=== PATIENT | male | born 1975 | race Caucasian/White ===

== ENCOUNTER → 2016-11-19 | Outpatient (CLI) | payer BC ==
[~2016-11-19] MED LIST: NS 100 ML IV 100 ML IV ONE
--- NOTE | 2016-11-19 15:41 | CT ---
CT abdomen and pelvis with contrast Indication: Left lower quadrant pain. Comparison: None Technique: CT images of the abdomen and pelvis were obtained after IV and oral contrast administrati on. Automatic exposure control was utilized. Findings: The lung bases are clear. No aggressive osseous lesions. The liver, gallbladder, spleen, stomach, duodenum, pancreas, adrenals, and kidneys demonstrate no si gnificant abnormality. There is a small simple appearing left lower pole renal cyst. No significant bowel thickening or dilatation of the lower GI tract identified. Contrast is present to the level of the sigmoid. The appendix appears normal. The urinary bladder, prostate, and rectum are unremarkabl e. No free fluid or adenopathy identified. There is a small fat containing left inguinal hernia. Impression: No acute process within the abdomen or pelvis. Small fat containing left inguinal hernia and other findings as above. Reported By:
== END ==
LOC: RAD 12:51
PROVIDERS: ATTEND Nurse Practitioner Family
DX: R10.32 Left lower quadrant pain (principal); R10.12 Left upper quadrant pain; R19.04 Left lower quadrant abdominal swelling, mass and lump
CPT/HCPCS: 74177; A4222

== ENCOUNTER 2017-07-18 07:12 | Inpatient (IN) | payer BC ==
[2017-07-18 07:19] VITALS: BMI 31.1
--- NOTE | 2017-07-18 07:54 | RAD ---
HISTORY: Shortness of breath Study: Two-view chest Comparison: No priors Findings: Trachea is midline. Heart size is normal. Linear foci of subsegmental atelectasis present in both omaira g bases. No dense consolidation, pleural fluid or pneumothorax is seen osseous structures are intact. IMPRESSION: Linear foci of subsegmental atelectasis present in both lung bases. Reported By:
[2017-07-18] MEDS ORDERED: DUONEB 0.5 MG/3 MG NEB ONE (07:58)
--- NOTE | 2017-07-18 08:04 | DR.GENAD ---
HPI - PCP Primary Care Physician: JERRY - Complaint/Symptoms Chief Complaint Doctors Comments: He's been having SOB + cough since sometimes in May. About 3 weeks ago he had an outpt. CXR that showed pneumonia. He was placed on Levaquin maybe 2 weeks ago and he finished this on 07/12/17. It took some time to get a pulmonology appt. for him but that is to happen 2 days from now. Last night he got more symptomatic. He's had fever and chills sometimes. The cough is productive sometimes and sometimes not. Chief Complaint:: "I HAVE BEEN SICK AND TAKING LEVAQUIN BUT I'M NOT FEELING BETTER." Self Treatment fo Chief Complaint: LEVAQUIN, BREATHING TX, STERIODS - Nurses notes reviewed Nurses Notes Review: Yes - Source History Provided: Patient - Mode of Arrival Mode of Arrival: Ambulatory - Timing Onset of Chief Complaint: 07/15/17 - Severity Severity: Moderate <LAUREN BEACH - Last Filed: 07/18/17 09:09> PMH - PMH Past Medical History: No Past Surgical History: No - Family History History of Family Medical Conditions: Yes Family Medical History: Cancer, Hypertension - Social History Does patient currently use any type of tobacco product: No Have you used tobacco products in the last 12 months: No Type of Tobacco Use: None Does any household member use tobacco: No Alcohol Use: None Do you use any recreational Drugs:: No Lives With: Spouse Lives Where: Home - infectious screening In the last 2 months have you had wt loss of >10#?: NO Have you had fever, night sweats or hemotysis?: No Have you traveled outside the country in the last 6 months?: No Isolation: Standard <LAUREN BEACH - Last Filed: 07/18/17 09:09> ROS - Review of Systems Constitutional: No Symptoms Reported Eyes: No Symptoms Reported ENTM: No Symptoms Reported Respiratoy: Productive Cough, Non-Productive Cough, Short of Breath Cardiovascular: No Symptoms Reported Gastrointestinal/Abdominal: No Symptoms Reported Genitourinary: No Symptoms Reported Neurological: No Symptoms Reported Musculoskeletal: No Symptoms Reported Integumentary: No Symptoms Reported Hematologic/Lymphatic: No Symptoms Reported Endocrine: No Symptoms Reported Psychiatric: No Symptoms Reported All Other Systems: Reviewed and Negative <LAUREN BEACH - Last Filed: 07/18/17 09:09> PE - General Limitations: No Limitations General Appearance: Alert, In No Apparent Distress - Head Head Exam: Normal Inspection - Eyes Eye exam: Normal Appearance - ENT ENT Exam: Normal Exam - Neck Neck Exam: Normal Inspection - Chest Chest Inspection: Normal Inspection, Symmetric Chest Wall Rise - Respiratory Respiratory Exam: negative: Normal Lung Sounds Bilat, Accessory Muscle Use, Chest Wall Tenderness, Prolonged Expiratory Phase, Respiratory Distress, Stridor Respiratory Exam: Bilateral Rhonchi (at bases), Bilateral Decreased Breath Sounds (at bases) - Cardiovascular Cardiovascular Exam: Regular Rate, Normal Rhythm, +S1, +S2 - Abdominal Exam Abdominal Exam: Normal Inspection, Normal Bowel Sounds, Soft - Extremities Extremities Exam: Normal Inspection - Back Back Exam: Normal Inspection - Neurologic Neurological Exam: Alert, Oriented X3, CN II-XII Intact - Psychiatric Psychiatric Exam: Normal Affect, Normal Mood - Skin Skin Exam: Warm, Dry, Intact, Normal Color <LAUREN BEACH - Last Filed: 07/18/17 09:09> - Vital Signs Vitals: Temperature 98.6 F Pulse Rate [Brachial] 108 Pulse Rate 84 Respiratory Rate 20 Blood Pressure [Right Arm] 132/71 Blood Pressure 153/78 O2 Sat by Pulse Oximetry 93 MDM - Differential Diagnosis Differential Diagnosis: CAP; Bronchitis; <LAUREN BEACH - Last Filed: 07/18/17 09:09> - Differential Diagnosis Differential Diagnosis: CAP; Bronchitis; hyoxia <LAINE JACK - Last Filed: 07/18/17 09:53> Course - Treatment Treatment: LEVAQUIN IVPB IN ED. - Consultation Consultation Comments: DISCUSS PATIENT WITH DR. HARRIS. HE WILL ADMIT PATIENT. - Education/Counseling Education/Counseling: Patient, Education Educated On: Diagnosis <LAINE JACK - Last Filed: 07/18/17 09:53> ROR - Labs Reviewed Result Diagrams: 07/18/17 07:46 07/18/17 07:46 - XRAY XRAY Interpreted by: Radiologist (bibasilar subsegmental atelectasis) <LAUREN BEACH - Last Filed: 07/18/17 09:09> - Labs Reviewed Laboratory Results Reviewed?: Yes Result Diagrams: 07/18/17 07:46 07/18/17 07:46 - XRAY XRAY Interpreted by: Radiologist XRAY Findings: REPORT NOTED <LAINE JACK - Last Filed: 07/18/17 09:53> - Labs Reviewed Laboratory: WBC 18.2 X10^3/uL (3.6-10.0) H 07/18/17 07:46 RBC 5.16 X10^6/uL (4.7-6.0) 07/18/17 07:46 Hgb 17.5 g/dL (13.5-18.0) 07/18/17 07:46 Hct 50.1 % (42.0-54.0) 07/18/17 07:46 MCV 97.2 fL (80.0-100.0) 07/18/17 07:46 MCH 34.0 pg (27.0-34.0) 07/18/17 07:46 MCHC 34.9 g/dL (33.0-35.0) 07/18/17 07:46 RDW 13.3 % (11.6-16.5) 07/18/17 07:46 Plt Count 229 X10^3/uL (150.0-450.0) 07/18/17 07:46 MPV 8.1 fL (7.4-11.0) 07/18/17 07:46 Neut % 87.6 % (42.0-75.0) H 07/18/17 07:46 Lymph % 7.3 % (21.0-51.0) L 07/18/17 07:46 [place] % 3.5 % (0.0-13.0) 07/18/17 07:46 Eos % 1.2 % (0.9-2.9) 07/18/17 07:46 Baso % 0.4 % (0.2-1.0) 07/18/17 07:46 Neut # 15.9 x10^3/uL (2.2-4.8) H 07/18/17 07:46 Lymph # 1.3 X10^3/uL (1.3-2.9) 07/18/17 07:46 [place] # 0.6 x10^3/uL (0.3-0.8) 07/18/17 07:46 Eos # 0.2 x10^3/uL (0.0-0.2) 07/18/17 07:46 Baso # 0.1 X10^3/uL (0.0-0.1) 07/18/17 07:46 Absolute Nucleated RBC 0.1 /100WBC 07/18/17 07:46 D-Dimer 140 ng/mL (0-400) 07/18/17 07:46 Sample Site Left radial 07/18/17 08:00 ABG pH 7.460 (7.35-7.45) H 07/18/17 08:00 ABG pCO2 37.0 mmHg (35.0-45.0) 07/18/17 08:00 ABG pO2 58.0 mmHg (80.0-100.0) L 07/18/17 08:00 ABG HCO3 26.3 mmol/L (22-26) H 07/18/17 08:00 ABG O2 Saturation 91.0 % (90-100) 07/18/17 08:00 ABG Base Excess 2.5 mmol/L (-2.0-2.0) H 07/18/17 08:00 Dain Test Pos 07/18/17 08:00 A-a Gradient 95.0 mmHg 07/18/17 08:00 FiO2 28.000 07/18/17 08:00 Blood Gas Comments Kia well gb 07/18/17 08:00 Sodium 139 mmol/L (136-145) 07/18/17 07:46 Corrected Sodium TNP 07/18/17 07:46 Potassium 3.7 mmol/L (3.5-5.1) 07/18/17 07:46 Chloride 101 mmol/L (98-107) 07/18/17 07:46 Carbon Dioxide 30.0 mmol/L (21-32) 07/18/17 07:46 BUN 14 mg/dL (7-18) 07/18/17 07:46 Creatinine 1.26 mg/dL (0.70-1.30) 07/18/17 07:46 Est GFR (MDRD) Af Amer > 60 (>60) 07/18/17 07:46 Est GFR (MDRD) Non-Af > 60 (>60) 07/18/17 07:46 Glucose 93 mg/dL (65-99) 07/18/17 07:46 Calcium 8.9 mg/dL (8.5-10.1) 07/18/17 07:46 Corrected Calcium TNP 07/18/17 07:46 Total Bilirubin 0.70 mg/dL (0.2-1.0) 07/18/17 07:46 AST 14 Units/L (15-37) L 07/18/17 07:46 ALT 37 Units/L (12-78) 07/18/17 07:46 Alkaline Phosphatase 63 Units/L (46-116) 07/18/17 07:46 Total Protein 8.2 g/dL (6.4-8.2) 07/18/17 07:46 Albumin 4.0 g/dL (3.4-5.0) 07/18/17 07:46 Globulin 4.2 g/dL (2.5-4.5) 07/18/17 07:46 Albumin/Globulin Ratio 1.0 Ratio (1.1-2.1) L 07/18/17 07:46 <LAUREN BEACH - Last Filed: 07/18/17 09:09> <LAINE JACK - Last Filed: 07/18/17 09:53> - Diagnosis Discharge Problem: Hypoxia Pneumonia Qualifiers: Pneumonia type: due to unspecified organism Laterality: bilateral Lung location : lower lobe of lung Qualified Code(s): J18.1 - Lobar pneumonia, unspecified organism - Discharge Plan Disposition: ADMITTED INPATIENT Condition: Stable - Follow ups/Referrals Follow ups/Referrals: YUN CALVILLO [Primary Care Provider] - 3 days - Instructions
[2017-07-18 08:11] LABS: BASOPHILS # (AUTO) 0.1 X10^3/uL (0.0-0.1); BASOPHILS % (AUTO) 0.4 % (0.2-1.0); EOSINOPHILS # (AUTO) 0.2 x10^3/uL (0.0-0.2); EOSINOPHILS % (AUTO) 1.2 % (0.9-2.9); HEMATOCRIT 50.1 % (42.0-54.0); HEMOGLOBIN 17.5 g/dL (13.5-18.0); LYMPHOCYTES # (AUTO) 1.3 X10^3/uL (1.3-2.9); LYMPHOCYTES % (AUTO) 7.3 % (21.0-51.0); MEAN CORPUSCULAR HGB CONC 34.9 g/dL (33.0-35.0); MEAN CORPUSCULAR VOLUME 97.2 fL (80.0-100.0); MEAN PLATELET VOLUME 8.1 fL (7.4-11.0); MONOCYTES # (AUTO) 0.6 x10^3/uL (0.3-0.8); MONOCYTES % (AUTO) 3.5 % (0.0-13.0); NEUTROPHILS # (AUTO) 15.9 x10^3/uL (2.2-4.8); NEUTROPHILS % (AUTO) 87.6 % (42.0-75.0); PLATELET COUNT 229 X10^3/uL (150.0-450.0); RED BLOOD COUNT 5.16 X10^6/uL (4.7-6.0); RED CELL DISTRIBUTION WIDTH 13.3 % (11.6-16.5); WHITE BLOOD COUNT 18.2 X10^3/uL (3.6-10.0)
[2017-07-18 08:21] LABS: ALANINE AMINOTRANSFERASE 37 Units/L (12-78); ALKALINE PHOSPHATASE 63 Units/L (46-116); ASPARTATE AMINO TRANSFERASE 14 Units/L (15-37); BLOOD UREA NITROGEN 14 mg/dL (7-18); CALCIUM 8.9 mg/dL (8.5-10.1); CHLORIDE 101 mmol/L (98-107); CREATININE 1.26 mg/dL (0.70-1.30); SODIUM 139 mmol/L (136-145); TOTAL PROTEIN 8.2 g/dL (6.4-8.2); eGFR BLACK RACES > 60 (>60); eGFR NON BLACK RACES > 60 (>60)
[2017-07-18 08:23] LABS: ABG BASE EXCESS 2.5 mmol/L (-2.0-2.0); ABG HCO3 26.3 mmol/L (22-26)
[2017-07-18 08:24] LABS: ABG ALLEN TEST POS
[2017-07-18] MEDS ORDERED: LEVAQUIN PREMIX IV 750 MG 750 MG/150 ML BAG IV ONE (09:04)
[2017-07-18] MEDS ORDERED: SALINE 3% 15 ML NEB TX ONE (09:17)
[2017-07-18] MEDS ORDERED: NS 1/2 1000 ML IV 1,000 ML IV ONE (09:49)
[2017-07-18] MEDS ORDERED: ZITHROMAX INJ 500 MG VIAL IV ONE (09:50)
[2017-07-18] MEDS ORDERED: NS 250 ML IV 250 ML IV ONE (09:51)
[2017-07-18] MEDS: ZITHROMAX INJ 500 MG VIAL 500 MG in NS 250 ML IV 250 ML IV SCH (09:59)
[2017-07-18] MEDS: NS 1/2 1000 ML IV 1,000 ML IV SCH (09:59)
[2017-07-18] MEDS: DUONEB 0.5 MG/3 MG NEB SCH ×4 (10:41→20:20)
[2017-07-18] MEDS: NORVASC TAB 5 MG PO SCH (10:56)
[2017-07-18] MEDS: VIBRAMYCIN 100 MG in NS 100 ML IV + SPIKE MINIBAG* 100 ML IV SCH ×2 (12:05→20:21)
[2017-07-18] MEDS: ROBITUSSIN DM PO SCH ×3 (12:05→20:22)
[2017-07-18] MEDS: TYLENOL 325 MG TAB PO PRN ×2 (15:00→21:13)
[2017-07-19] MEDS: DUONEB 0.5 MG/3 MG NEB SCH ×6 (00:58→20:38)
[2017-07-19] MEDS: NS 1/2 1000 ML IV 1,000 ML IV SCH ×3 (01:07→15:27)
[2017-07-19] MEDS ORDERED: NS 1/2 1000 ML IV 1,000 ML IV ONE ×2 (01:45→14:35)
[2017-07-19 05:39] LABS: BASOPHILS # (AUTO) 0.1 X10^3/uL (0.0-0.1); BASOPHILS % (AUTO) 0.7 % (0.2-1.0); EOSINOPHILS # (AUTO) 0.2 x10^3/uL (0.0-0.2); EOSINOPHILS % (AUTO) 1.6 % (0.9-2.9); HEMATOCRIT 43.3 % (42.0-54.0); LYMPHOCYTES # (AUTO) 1.7 X10^3/uL (1.3-2.9); MEAN CORPUSCULAR HEMOGLOBIN 33.6 pg (27.0-34.0); MEAN CORPUSCULAR HGB CONC 34.7 g/dL (33.0-35.0); MEAN PLATELET VOLUME 7.8 fL (7.4-11.0); MONOCYTES # (AUTO) 0.4 x10^3/uL (0.3-0.8); MONOCYTES % (AUTO) 3.6 % (0.0-13.0); NEUTROPHILS % (AUTO) 79.1 % (42.0-75.0); PLATELET COUNT 168 X10^3/uL (150.0-450.0); RED BLOOD COUNT 4.46 X10^6/uL (4.7-6.0); RED CELL DISTRIBUTION WIDTH 13.4 % (11.6-16.5); WHITE BLOOD COUNT 11.4 X10^3/uL (3.6-10.0)
[2017-07-19 06:02] LABS: ALANINE AMINOTRANSFERASE 32 Units/L (12-78); ALKALINE PHOSPHATASE 46 Units/L (46-116); ASPARTATE AMINO TRANSFERASE 16 Units/L (15-37); BLOOD UREA NITROGEN 10 mg/dL (7-18); CALCIUM 8.1 mg/dL (8.5-10.1); CARBON DIOXIDE 28.3 mmol/L (21-32); CHLORIDE 105 mmol/L (98-107); COR CA(FOR HYPOALB) 8.9 mg/dL (8.5-10.1); CREATININE 1.14 mg/dL (0.70-1.30); SODIUM 141 mmol/L (136-145); TOTAL PROTEIN 6.5 g/dL (6.4-8.2); eGFR BLACK RACES > 60 (>60); eGFR NON BLACK RACES > 60 (>60)
[2017-07-19] MEDS: NORVASC TAB 5 MG PO SCH (08:11)
[2017-07-19] MEDS: ZITHROMAX INJ 500 MG VIAL 500 MG in NS 250 ML IV 250 ML IV SCH (08:13)
[2017-07-19] MEDS: ROBITUSSIN DM PO SCH ×4 (08:13→20:18)
[2017-07-19] MEDS: VIBRAMYCIN 100 MG in NS 100 ML IV + SPIKE MINIBAG* 100 ML IV SCH ×2 (08:13→20:16)
[2017-07-19] MEDS ORDERED: SALINE 3% 15 ML NEB TX NEB ONE ×2 (13:15→15:10)
[2017-07-19] MEDS ORDERED: SALINE 3% 15 ML NEB TX ONE (14:59)
--- NOTE | 2017-07-19 15:22 | RAD ---
STUDY: CHEST, ONE VIEW History: Follow-up pneumonia. Comparison: July 18, 2017. Findings: The trachea is midline. There is linear atelectasis in both lung bases. The lungs are clear of consol idation, significant infiltrate, effusion, or pneumothorax. The cardiac silhouette, mediastinum and o sseous structures are unremarkable. IMPRESSION: 1. Noted no significant change in linear atelectasis in both lung bases. Reported By:
[2017-07-19] MEDS: MUCOMYST 20% 200 MG/ML NEB SCH ×2 (16:36→20:38)
[2017-07-19] MEDS: SOLU-Medrol 40 MG VIAL IVP SCH (20:17)
[2017-07-19] MEDS: PROTONIX INJ 40 MG VIAL IVP SCH (20:17)
[2017-07-19] MEDS: PULMICORT NEB TX 0.5 MG NEB SCH (20:38)
[2017-07-19 20:54] LABS: CKMB % 1.6 % (<4); CREATINE KINASE 61 Units/L (39-308); CREATINE KINASE MB < 1.0 ng/mL (0-4.0); TROPONIN I < 0.02 ng/mL (0-1.5)
[2017-07-20] MEDS: DUONEB 0.5 MG/3 MG NEB SCH ×6 (00:10→20:40)
[2017-07-20] MEDS: SOLU-Medrol 40 MG VIAL IVP SCH ×2 (03:40→13:17)
[2017-07-20] MEDS ORDERED: NS 1/2 1000 ML IV 1,000 ML IV ONE ×3 (03:42→22:28)
[2017-07-20] MEDS: NS 1/2 1000 ML IV 1,000 ML IV SCH ×5 (03:43→22:56)
[2017-07-20] MEDS ORDERED: NS 100 ML IV 100 ML IV ONE (06:06)
[2017-07-20 06:14] LABS: BASOPHILS % (AUTO) 0.2 % (0.2-1.0); EOSINOPHILS % (AUTO) 0.2 % (0.9-2.9); HEMATOCRIT 45.6 % (42.0-54.0); HEMOGLOBIN 15.9 g/dL (13.5-18.0); LYMPHOCYTES # (AUTO) 0.4 X10^3/uL (1.3-2.9); LYMPHOCYTES % (AUTO) 3.8 % (21.0-51.0); MEAN CORPUSCULAR HEMOGLOBIN 33.7 pg (27.0-34.0); MEAN CORPUSCULAR HGB CONC 34.9 g/dL (33.0-35.0); MEAN CORPUSCULAR VOLUME 96.4 fL (80.0-100.0); MEAN PLATELET VOLUME 8.1 fL (7.4-11.0); MONOCYTES # (AUTO) 0.1 x10^3/uL (0.3-0.8); NEUTROPHILS % (AUTO) 94.8 % (42.0-75.0); PLATELET COUNT 217 X10^3/uL (150.0-450.0); RED BLOOD COUNT 4.73 X10^6/uL (4.7-6.0); RED CELL DISTRIBUTION WIDTH 13.2 % (11.6-16.5); WHITE BLOOD COUNT 11.6 X10^3/uL (3.6-10.0)
[2017-07-20 06:38] LABS: PLATELET MORPHOLOGY COMMENT NORMAL (NORMAL)
[2017-07-20 06:43] LABS: ALANINE AMINOTRANSFERASE 39 Units/L (12-78); ALBUMIN 3.5 g/dL (3.4-5.0); ALKALINE PHOSPHATASE 55 Units/L (46-116); ASPARTATE AMINO TRANSFERASE 13 Units/L (15-37); BLOOD UREA NITROGEN 9 mg/dL (7-18); CALCIUM 8.8 mg/dL (8.5-10.1); CARBON DIOXIDE 23.2 mmol/L (21-32); CHLORIDE 104 mmol/L (98-107); COR NA(FOR HYPERGLY) 140 mmol/L (136-145); CREATININE 1.22 mg/dL (0.70-1.30); SODIUM 139 mmol/L (136-145); TOTAL PROTEIN 7.6 g/dL (6.4-8.2); eGFR BLACK RACES > 60 (>60); eGFR NON BLACK RACES > 60 (>60)
--- NOTE | 2017-07-20 06:52 | CT ---
HISTORY: Shortness of breath Study: CTA chest with contrast for pulmonary embolus Comparison: None Technique: Axial post-contrast images with coronal and sagittal reformats. Three-dimensional maximum intensity projection images were obtained and evaluated Dose reduction procedures were used with mA/k v adjusted for body size. Findings: There is no evidence for acute pulmonary thromboembolic disease in the main pulmonary artery or right and left main pulmonary artery is. Evaluation more distally is not possible due to suboptimal bolus timing. Repeat evaluation or ventilation-perfusion lung scan should be considered. Examination of the mediastinum demonstrated no evidence for mediastinal masses, enlarged mediastinal or enlarged hilar adenopathy. No pleural effusions are identified. No chest wall or axillary abnormality is identified. Those portions of the upper abdominal organs visualized were within normal limits. Examination of th e lung jerez demonstrated no evidence for nodules, or masses. Bibasilar subsegmental atelectatic rubi nges are present. There is an area of consolidation far posterior and inferior in both the right and left lower lobe most consistent with pneumonia. Follow-up until complete resolution is recommended. N o peribronchial thickening or significant bronchiectasis is identified. IMPRESSION: No visible pulmonary thromboembolic disease in the main or right and left main pulmonary artery is. T he remainder of the examination is nondiagnostic for the detection of acute pulmonary thromboembolic disease due to suboptimal bolus timing. Bilateral lower lobe pneumonia involving the far posterior and inferior lung bases bilaterally Reported By:
[2017-07-20 08:50] LABS: LACTIC ACID 4.1 mmol/L (0.4-2.0)
[2017-07-20 08:52] LABS: CKMB % 1.6 % (<4); CREATINE KINASE 63 Units/L (39-308); CREATINE KINASE MB < 1.0 ng/mL (0-4.0); TROPONIN I < 0.02 ng/mL (0-1.5)
[2017-07-20] MEDS: NORVASC TAB 5 MG PO SCH (09:09)
[2017-07-20] MEDS: ZITHROMAX INJ 500 MG VIAL 500 MG in NS 250 ML IV 250 ML IV SCH (09:10)
[2017-07-20] MEDS: VIBRAMYCIN 100 MG in NS 100 ML IV + SPIKE MINIBAG* 100 ML IV SCH ×2 (09:10→20:38)
[2017-07-20] MEDS: ROBITUSSIN DM PO SCH ×4 (09:10→20:44)
[2017-07-20] MEDS: PROTONIX INJ 40 MG VIAL IVP SCH (09:10)
[2017-07-20] MEDS: MUCOMYST 20% 200 MG/ML NEB SCH ×4 (09:18→20:40)
[2017-07-20] MEDS: PULMICORT NEB TX 0.5 MG NEB SCH ×2 (09:19→20:40)
--- NOTE | 2017-07-20 17:58 | PCM.PROG ---
Progress Note - Progress Note for Day of Date: 07/19/17 - Subjective Subjective: 42 WM ER ADMISSION WITH SOB, PT STATES HE WAS TRATED ON OUTPT BASIS FOR PNEUMONIA X 1 MONTH WITHOUT IMPROVEMENT. PT WAS SEEN IN [facility] BY DR HARRIS ONE DAY AGO. PT ON RESP THERAPY. PT CONTINUES TO CO SEVERE SOB, WORSE ON EXERTION. PT DENIES ANY CP. IV STEROIDS ADDED, MUCOMYST, PULMICORT, CTA CHEST Q AM. CARDIAC ENZYMES AND EKG. SUPPLMENTAL O2 - Past Medical Family Social History Past Med/Fam/Surg Hx: No changes since H&P Allergies: Allergies aspirin Allergy (Verified 07/18/17 07:19) Penicillins Allergy (Verified 07/18/17 07:19) - Review of Systems ROS: No change since H&P - Vital Signs and I&O's Vital Signs: Temperature 97.9 F Pulse Rate [Right Brachial] 115 Pulse Rate [Brachial] 90 Pulse Rate 107 Respiratory Rate 18 Blood Pressure [Left Arm] 139/64 Blood Pressure [Right Arm] 130/75 Blood Pressure 130/66 O2 Sat by Pulse Oximetry 93 Intake and Output: Intake & Output 07/18/17 07/19/17 07/20/17 07/21/17 11:59 11:59 11:59 11:59 Intake Total 2290 4265 800 Output Total 0 Balance 2290 4265 800 - Physical Exam Oriented: Normal Eyes: Normal Ear: Normal Nose: Normal Throat: Normal Respiratory: Diminished Cardiovascular: Normal. negative: Edema : Dysuria Auscultation: Bowel Sounds: Normal Palpation: Normal Tenderness: Normal Skin: Normal Musculoskeletal: Normal Affect: Anxious Speech Pattern: Clear, Appropriate - Laboratory and Diagnostics Result Diagrams: 07/20/17 05:40 07/20/17 05:40 Labs: 07/18/17 07:46 Blood Blood Culture - Preliminary 07/18/17 07:56 Blood Blood Culture - Preliminary 07/19/17 15:32 Sputum - Expectorated Sputum Sputum Culture - Preliminary 07/19/17 15:32 Sputum - Expectorated Sputum - Final Laboratory WBC 11.6 X10^3/uL (3.6-10.0) H 07/20/17 05:40 RBC 4.73 X10^6/uL (4.7-6.0) 07/20/17 05:40 Hgb 15.9 g/dL (13.5-18.0) 07/20/17 05:40 Hct 45.6 % (42.0-54.0) 07/20/17 05:40 MCV 96.4 fL (80.0-100.0) 07/20/17 05:40 MCH 33.7 pg (27.0-34.0) 07/20/17 05:40 MCHC 34.9 g/dL (33.0-35.0) 07/20/17 05:40 RDW 13.2 % (11.6-16.5) 07/20/17 05:40 Plt Count 217 X10^3/uL (150.0-450.0) 07/20/17 05:40 Plt Count Comment Adequate (ADEQUATE) 07/20/17 05:40 MPV 8.1 fL (7.4-11.0) 07/20/17 05:40 Neut % (Auto) 94.8 % (42.0-75.0) H 07/20/17 05:40 Lymph % (Auto) 3.8 % (21.0-51.0) L 07/20/17 05:40 [place] % (Auto) 1.0 % (0.0-13.0) 07/20/17 05:40 Eos % (Auto) 0.2 % (0.9-2.9) L 07/20/17 05:40 Baso % (Auto) 0.2 % (0.2-1.0) 07/20/17 05:40 Neut # (Auto) 11.0 x10^3/uL (2.2-4.8) H 07/20/17 05:40 Lymph # (Auto) 0.4 X10^3/uL (1.3-2.9) L 07/20/17 05:40 [place] # (Auto) 0.1 x10^3/uL (0.3-0.8) L 07/20/17 05:40 Eos # (Auto) 0.0 x10^3/uL (0.0-0.2) 07/20/17 05:40 Baso # (Auto) 0.0 X10^3/uL (0.0-0.1) 07/20/17 05:40 Absolute Nucleated RBC 0.0 /100WBC 07/20/17 05:40 Total Counted 100 07/20/17 05:40 Neutrophils % (Manual) 96 % (39-76) H 07/20/17 05:40 Lymphocytes % (Manual) 4 % (13-43) L 07/20/17 05:40 Plt Morphology Comment Normal (NORMAL) 07/20/17 05:40 RBC Morphology Normal (NORMAL) 07/20/17 05:40 D-Dimer 140 ng/mL (0-400) 07/18/17 07:46 Sample Site Left radial 07/18/17 08:00 ABG pH 7.460 (7.35-7.45) H 07/18/17 08:00 ABG pCO2 37.0 mmHg (35.0-45.0) 07/18/17 08:00 ABG pO2 58.0 mmHg (80.0-100.0) L 07/18/17 08:00 ABG HCO3 26.3 mmol/L (22-26) H 07/18/17 08:00 ABG O2 Saturation 91.0 % (90-100) 07/18/17 08:00 ABG Base Excess 2.5 mmol/L (-2.0-2.0) H 07/18/17 08:00 Dain Test Pos 07/18/17 08:00 A-a Gradient 95.0 mmHg 07/18/17 08:00 FiO2 28.000 07/18/17 08:00 Blood Gas Comments Kia well gb 07/18/17 08:00 Sodium 139 mmol/L (136-145) 07/20/17 05:40 Corrected Sodium 140 mmol/L (136-145) 07/20/17 05:40 Potassium 4.5 mmol/L (3.5-5.1) 07/20/17 05:40 Chloride 104 mmol/L (98-107) 07/20/17 05:40 Carbon Dioxide 23.2 mmol/L (21-32) 07/20/17 05:40 BUN 9 mg/dL (7-18) 07/20/17 05:40 Creatinine 1.22 mg/dL (0.70-1.30) 07/20/17 05:40 Est GFR (MDRD) Af Amer > 60 (>60) 07/20/17 05:40 Est GFR (MDRD) Non-Af > 60 (>60) 07/20/17 05:40 Glucose 157 mg/dL (65-99) H 07/20/17 05:40 Lactic Acid 4.1 mmol/L (0.4-2.0) H 07/20/17 08:10 Calcium 8.8 mg/dL (8.5-10.1) 07/20/17 05:40 Corrected Calcium TNP 07/20/17 05:40 Total Bilirubin 0.40 mg/dL (0.2-1.0) 07/20/17 05:40 AST 13 Units/L (15-37) L 07/20/17 05:40 ALT 39 Units/L (12-78) 07/20/17 05:40 Alkaline Phosphatase 55 Units/L (46-116) 07/20/17 05:40 Creatine Kinase 63 Units/L (39-308) 07/20/17 08:10 CK-MB (CK-2) < 1.0 ng/mL (0-4.0) 07/20/17 08:10 CK/CKMB % Calc 1.6 % (<4) 07/20/17 08:10 Troponin I < 0.02 ng/mL (0-1.5) 07/20/17 08:10 Total Protein 7.6 g/dL (6.4-8.2) 07/20/17 05:40 Albumin 3.5 g/dL (3.4-5.0) 07/20/17 05:40 Globulin 4.1 g/dL (2.5-4.5) 07/20/17 05:40 Albumin/Globulin Ratio 0.9 Ratio (1.1-2.1) L 07/20/17 05:40 - Plan (1) SOB (shortness of breath) Status: Acute Plan: CONTINUE IV ATBX, RESP THERAPY. PULMONARY TOILETING, PT. CTA CHEST Q AM , BP MONITORING. CARDIAC ENZYMES AND EKG. REPEAT AM LABS, LACTIC ACID (2) Hypertension Status: Acute (3) Pneumonia Status: Acute Qualifiers: Pneumonia type: due to unspecified organism Laterality: bilateral Lung location: lower lobe of lung Qualified Code(s): J18.1 - Lobar pneumonia, unspecified organism
--- NOTE | 2017-07-20 18:01 | PCM.PROG ---
Progress Note - Progress Note for Day of Date: 07/20/17 - Subjective Subjective: 42 WM ER ADMISSION WITH SOB, PT STATES HE WAS TRATED ON OUTPT BASIS FOR PNEUMONIA X 1 MONTH WITHOUT IMPROVEMENT. PT CONTINUES TO CO SOB THIS AM, MILD NON PRODUCTIVE COUGH. PT CTA REVEALED BILATERAL PNEUMONIA, DISCUSSED LAB AND RAD REPORTS, ADD SMART VEST, ENCOURAGE HYDRATION AND AMBULATION. REPEAT AM LABS AND CXR - Past Medical Family Social History Past Med/Fam/Surg Hx: No changes since H&P Allergies: Allergies aspirin Allergy (Verified 07/18/17 07:19) Penicillins Allergy (Verified 07/18/17 07:19) - Review of Systems ROS: No change since H&P - Vital Signs and I&O's Vital Signs: Temperature 97.9 F Pulse Rate [Right Brachial] 115 Pulse Rate [Brachial] 90 Pulse Rate 107 Respiratory Rate 18 Blood Pressure [Left Arm] 139/64 Blood Pressure [Right Arm] 130/75 Blood Pressure 130/66 O2 Sat by Pulse Oximetry 93 Intake and Output: Intake & Output 07/18/17 07/19/17 07/20/17 07/21/17 11:59 11:59 11:59 11:59 Intake Total 2290 4265 800 Output Total 0 Balance 2290 4265 800 - Physical Exam Oriented: Normal Eyes: Normal Ear: Normal Nose: Normal Throat: Normal Respiratory: Diminished Cardiovascular: Normal. negative: Edema : Dysuria Auscultation: Bowel Sounds: Normal Tenderness: Normal Skin: Normal Musculoskeletal: Normal Affect: Anxious Speech Pattern: Clear, Appropriate - Laboratory and Diagnostics Result Diagrams: 07/20/17 05:40 07/20/17 05:40 Labs: 07/18/17 07:46 Blood Blood Culture - Preliminary 07/18/17 07:56 Blood Blood Culture - Preliminary 07/19/17 15:32 Sputum - Expectorated Sputum Sputum Culture - Preliminary 07/19/17 15:32 Sputum - Expectorated Sputum - Final Laboratory WBC 11.6 X10^3/uL (3.6-10.0) H 07/20/17 05:40 RBC 4.73 X10^6/uL (4.7-6.0) 07/20/17 05:40 Hgb 15.9 g/dL (13.5-18.0) 07/20/17 05:40 Hct 45.6 % (42.0-54.0) 07/20/17 05:40 MCV 96.4 fL (80.0-100.0) 07/20/17 05:40 MCH 33.7 pg (27.0-34.0) 07/20/17 05:40 MCHC 34.9 g/dL (33.0-35.0) 07/20/17 05:40 RDW 13.2 % (11.6-16.5) 07/20/17 05:40 Plt Count 217 X10^3/uL (150.0-450.0) 07/20/17 05:40 Plt Count Comment Adequate (ADEQUATE) 07/20/17 05:40 MPV 8.1 fL (7.4-11.0) 07/20/17 05:40 Neut % (Auto) 94.8 % (42.0-75.0) H 07/20/17 05:40 Lymph % (Auto) 3.8 % (21.0-51.0) L 07/20/17 05:40 [place] % (Auto) 1.0 % (0.0-13.0) 07/20/17 05:40 Eos % (Auto) 0.2 % (0.9-2.9) L 07/20/17 05:40 Baso % (Auto) 0.2 % (0.2-1.0) 07/20/17 05:40 Neut # (Auto) 11.0 x10^3/uL (2.2-4.8) H 07/20/17 05:40 Lymph # (Auto) 0.4 X10^3/uL (1.3-2.9) L 07/20/17 05:40 [place] # (Auto) 0.1 x10^3/uL (0.3-0.8) L 07/20/17 05:40 Eos # (Auto) 0.0 x10^3/uL (0.0-0.2) 07/20/17 05:40 Baso # (Auto) 0.0 X10^3/uL (0.0-0.1) 07/20/17 05:40 Absolute Nucleated RBC 0.0 /100WBC 07/20/17 05:40 Total Counted 100 07/20/17 05:40 Neutrophils % (Manual) 96 % (39-76) H 07/20/17 05:40 Lymphocytes % (Manual) 4 % (13-43) L 07/20/17 05:40 Plt Morphology Comment Normal (NORMAL) 07/20/17 05:40 RBC Morphology Normal (NORMAL) 07/20/17 05:40 D-Dimer 140 ng/mL (0-400) 07/18/17 07:46 Sample Site Left radial 07/18/17 08:00 ABG pH 7.460 (7.35-7.45) H 07/18/17 08:00 ABG pCO2 37.0 mmHg (35.0-45.0) 07/18/17 08:00 ABG pO2 58.0 mmHg (80.0-100.0) L 07/18/17 08:00 ABG HCO3 26.3 mmol/L (22-26) H 07/18/17 08:00 ABG O2 Saturation 91.0 % (90-100) 07/18/17 08:00 ABG Base Excess 2.5 mmol/L (-2.0-2.0) H 07/18/17 08:00 Dain Test Pos 07/18/17 08:00 A-a Gradient 95.0 mmHg 07/18/17 08:00 FiO2 28.000 07/18/17 08:00 Blood Gas Comments Kia well gb 07/18/17 08:00 Sodium 139 mmol/L (136-145) 07/20/17 05:40 Corrected Sodium 140 mmol/L (136-145) 07/20/17 05:40 Potassium 4.5 mmol/L (3.5-5.1) 07/20/17 05:40 Chloride 104 mmol/L (98-107) 07/20/17 05:40 Carbon Dioxide 23.2 mmol/L (21-32) 07/20/17 05:40 BUN 9 mg/dL (7-18) 07/20/17 05:40 Creatinine 1.22 mg/dL (0.70-1.30) 07/20/17 05:40 Est GFR (MDRD) Af Amer > 60 (>60) 07/20/17 05:40 Est GFR (MDRD) Non-Af > 60 (>60) 07/20/17 05:40 Glucose 157 mg/dL (65-99) H 07/20/17 05:40 Lactic Acid 4.1 mmol/L (0.4-2.0) H 07/20/17 08:10 Calcium 8.8 mg/dL (8.5-10.1) 07/20/17 05:40 Corrected Calcium TNP 07/20/17 05:40 Total Bilirubin 0.40 mg/dL (0.2-1.0) 07/20/17 05:40 AST 13 Units/L (15-37) L 07/20/17 05:40 ALT 39 Units/L (12-78) 07/20/17 05:40 Alkaline Phosphatase 55 Units/L (46-116) 07/20/17 05:40 Creatine Kinase 63 Units/L (39-308) 07/20/17 08:10 CK-MB (CK-2) < 1.0 ng/mL (0-4.0) 07/20/17 08:10 CK/CKMB % Calc 1.6 % (<4) 07/20/17 08:10 Troponin I < 0.02 ng/mL (0-1.5) 07/20/17 08:10 Total Protein 7.6 g/dL (6.4-8.2) 07/20/17 05:40 Albumin 3.5 g/dL (3.4-5.0) 07/20/17 05:40 Globulin 4.1 g/dL (2.5-4.5) 07/20/17 05:40 Albumin/Globulin Ratio 0.9 Ratio (1.1-2.1) L 07/20/17 05:40 - Plan (1) SOB (shortness of breath) Status: Acute Plan: CONTINUE IV ATBX, RESP THERAPY. PULMONARY TOILETING, PT. CTA CHEST RESULTS REVIEWED WITH PT, BP MONITORING. CARDIAC ENZYMES AND EKG REVIEWED WITH PT AND FAMILY. REPEAT AM LABS, LACTIC ACID (2) Hypertension Status: Acute (3) Pneumonia Status: Acute Qualifiers: Pneumonia type: due to unspecified organism Laterality: bilateral Lung location: lower lobe of lung Qualified Code(s): J18.1 - Lobar pneumonia, unspecified organism Plan: ATBX, RESP CARE, CXR
[2017-07-20] MEDS: TUSSIONEX PENNKINETIC SUSP PO PRN ×2 (20:38→22:56)
[2017-07-21] MEDS: DUONEB 0.5 MG/3 MG NEB SCH ×6 (01:22→21:23)
[2017-07-21] MEDS ORDERED: NS 1/2 1000 ML IV 1,000 ML IV ONE ×3 (05:02→19:17)
[2017-07-21] MEDS: NS 1/2 1000 ML IV 1,000 ML IV SCH ×5 (05:38→20:30)
[2017-07-21 05:42] LABS: LACTIC ACID 2.2 mmol/L (0.4-2.0)
[2017-07-21 05:47] LABS: ALANINE AMINOTRANSFERASE 37 Units/L (12-78); ALBUMIN 2.9 g/dL (3.4-5.0); ALKALINE PHOSPHATASE 47 Units/L (46-116); ASPARTATE AMINO TRANSFERASE 14 Units/L (15-37); BLOOD UREA NITROGEN 11 mg/dL (7-18); CALCIUM 8.3 mg/dL (8.5-10.1); CARBON DIOXIDE 25.2 mmol/L (21-32); CHLORIDE 106 mmol/L (98-107); COR CA(FOR HYPOALB) 9.2 mg/dL (8.5-10.1); COR NA(FOR HYPERGLY) 142 mmol/L (136-145); CREATININE 1.02 mg/dL (0.70-1.30); SODIUM 141 mmol/L (136-145); TOTAL PROTEIN 6.2 g/dL (6.4-8.2); eGFR BLACK RACES > 60 (>60); eGFR NON BLACK RACES > 60 (>60)
[2017-07-21 05:51] LABS: BASOPHILS % (AUTO) 0.2 % (0.2-1.0); HEMATOCRIT 40.4 % (42.0-54.0); LYMPHOCYTES # (AUTO) 0.9 X10^3/uL (1.3-2.9); LYMPHOCYTES % (AUTO) 4.6 % (21.0-51.0); MEAN CORPUSCULAR HEMOGLOBIN 33.5 pg (27.0-34.0); MEAN CORPUSCULAR HGB CONC 34.6 g/dL (33.0-35.0); MEAN PLATELET VOLUME 8.4 fL (7.4-11.0); MONOCYTES # (AUTO) 0.7 x10^3/uL (0.3-0.8); MONOCYTES % (AUTO) 3.5 % (0.0-13.0); NEUTROPHILS # (AUTO) 17.6 x10^3/uL (2.2-4.8); NEUTROPHILS % (AUTO) 91.7 % (42.0-75.0); PLATELET COUNT 209 X10^3/uL (150.0-450.0); RED BLOOD COUNT 4.17 X10^6/uL (4.7-6.0); RED CELL DISTRIBUTION WIDTH 13.1 % (11.6-16.5); WHITE BLOOD COUNT 19.2 X10^3/uL (3.6-10.0)
[2017-07-21 06:38] LABS: BAND NEUTROPHILS % 4 % (0-10); PLATELET MORPHOLOGY COMMENT NORMAL (NORMAL)
[2017-07-21] MEDS: VIBRAMYCIN 100 MG in NS 100 ML IV + SPIKE MINIBAG* 100 ML IV SCH ×2 (08:42→20:30)
[2017-07-21] MEDS: PROTONIX INJ 40 MG VIAL IVP SCH (08:42)
[2017-07-21] MEDS: ROBITUSSIN DM PO SCH ×4 (08:42→20:30)
[2017-07-21] MEDS: NORVASC TAB 5 MG PO SCH (08:42)
[2017-07-21] MEDS: ZITHROMAX INJ 500 MG VIAL 500 MG in NS 250 ML IV 250 ML IV SCH (08:42)
[2017-07-21] MEDS: MUCOMYST 20% 200 MG/ML NEB SCH ×4 (09:03→21:23)
[2017-07-21] MEDS: PULMICORT NEB TX 0.5 MG NEB SCH ×2 (09:03→21:23)
--- NOTE | 2017-07-21 09:35 | RAD ---
Examination: Chest, PA and lateral views History: Follow-up pneumonia Comparison reference 07/19/2017 Findings: Continued normal heart size with mild symmetric pulmonary underinflation. There are persist ent areas of linear density in both lower lungs as previously noted. No consolidation, adenopathy or pleural fluid identified. Impression: Persistent bibasal areas of infiltrate/atelectasis, accentuated by low pulmonary volumes. Reported By:
[2017-07-21] MEDS ORDERED: SALINE 0.9% 3 ML NEB TX NEB ONE (10:23)
[2017-07-21] MEDS ORDERED: SALINE 3% 15 ML NEB TX NEB ONE (10:45)
[2017-07-21 14:19] LABS: MYCOPLASMA PNEUMONIAE IGM AB POSITIVE (NEGATIVE)
[2017-07-22] MEDS: DUONEB 0.5 MG/3 MG NEB SCH ×6 (01:24→21:23)
[2017-07-22] MEDS ORDERED: NS 1/2 1000 ML IV 1,000 ML IV ONE ×4 (01:36→22:16)
[2017-07-22] MEDS: NS 1/2 1000 ML IV 1,000 ML IV SCH ×3 (04:39→18:05)
[2017-07-22 05:39] LABS: BASOPHILS % (AUTO) 0.3 % (0.2-1.0); EOSINOPHILS # (AUTO) 0.1 x10^3/uL (0.0-0.2); EOSINOPHILS % (AUTO) 1.1 % (0.9-2.9); HEMATOCRIT 40.6 % (42.0-54.0); HEMOGLOBIN 14.3 g/dL (13.5-18.0); LYMPHOCYTES # (AUTO) 2.3 X10^3/uL (1.3-2.9); LYMPHOCYTES % (AUTO) 23.3 % (21.0-51.0); MEAN CORPUSCULAR HEMOGLOBIN 33.9 pg (27.0-34.0); MEAN CORPUSCULAR HGB CONC 35.1 g/dL (33.0-35.0); MEAN CORPUSCULAR VOLUME 96.7 fL (80.0-100.0); MONOCYTES # (AUTO) 0.7 x10^3/uL (0.3-0.8); MONOCYTES % (AUTO) 6.6 % (0.0-13.0); NEUTROPHILS # (AUTO) 6.8 x10^3/uL (2.2-4.8); NEUTROPHILS % (AUTO) 68.7 % (42.0-75.0); PLATELET COUNT 195 X10^3/uL (150.0-450.0); RED CELL DISTRIBUTION WIDTH 12.9 % (11.6-16.5); WHITE BLOOD COUNT 9.9 X10^3/uL (3.6-10.0)
[2017-07-22 05:57] LABS: ALANINE AMINOTRANSFERASE 62 Units/L (12-78); ALBUMIN 2.9 g/dL (3.4-5.0); ALKALINE PHOSPHATASE 43 Units/L (46-116); ASPARTATE AMINO TRANSFERASE 27 Units/L (15-37); BLOOD UREA NITROGEN 14 mg/dL (7-18); CALCIUM 8.1 mg/dL (8.5-10.1); CARBON DIOXIDE 26.9 mmol/L (21-32); CHLORIDE 105 mmol/L (98-107); CREATININE 1.06 mg/dL (0.70-1.30); SODIUM 141 mmol/L (136-145); TOTAL PROTEIN 6.3 g/dL (6.4-8.2); eGFR BLACK RACES > 60 (>60); eGFR NON BLACK RACES > 60 (>60)
[2017-07-22] MEDS: PROTONIX INJ 40 MG VIAL IVP SCH (08:13)
[2017-07-22] MEDS: NORVASC TAB 5 MG PO SCH (08:13)
[2017-07-22] MEDS: ROBITUSSIN DM PO SCH ×4 (08:13→21:10)
[2017-07-22] MEDS: VIBRAMYCIN 100 MG in NS 100 ML IV + SPIKE MINIBAG* 100 ML IV SCH ×2 (08:13→21:10)
[2017-07-22] MEDS: ZITHROMAX INJ 500 MG VIAL 500 MG in NS 250 ML IV 250 ML IV SCH (08:14)
[2017-07-22] MEDS: MUCOMYST 20% 200 MG/ML NEB SCH (09:51)
[2017-07-22] MEDS: PULMICORT NEB TX 0.5 MG NEB SCH ×2 (09:51→21:23)
[2017-07-22] MEDS: TUSSIONEX PENNKINETIC SUSP PO PRN (22:30)
[2017-07-23] MEDS: NS 1/2 1000 ML IV 1,000 ML IV SCH (03:19)
[2017-07-23] MEDS: DUONEB 0.5 MG/3 MG NEB SCH ×6 (05:01→21:12)
[2017-07-23 05:43] LABS: BASOPHILS % (AUTO) 0.4 % (0.2-1.0); EOSINOPHILS # (AUTO) 0.2 x10^3/uL (0.0-0.2); EOSINOPHILS % (AUTO) 2.8 % (0.9-2.9); HEMATOCRIT 43.2 % (42.0-54.0); HEMOGLOBIN 15.1 g/dL (13.5-18.0); LYMPHOCYTES # (AUTO) 1.9 X10^3/uL (1.3-2.9); LYMPHOCYTES % (AUTO) 22.4 % (21.0-51.0); MEAN CORPUSCULAR HGB CONC 34.9 g/dL (33.0-35.0); MEAN CORPUSCULAR VOLUME 97.4 fL (80.0-100.0); MEAN PLATELET VOLUME 7.4 fL (7.4-11.0); MONOCYTES # (AUTO) 0.7 x10^3/uL (0.3-0.8); MONOCYTES % (AUTO) 8.1 % (0.0-13.0); NEUTROPHILS # (AUTO) 5.7 x10^3/uL (2.2-4.8); NEUTROPHILS % (AUTO) 66.3 % (42.0-75.0); PLATELET COUNT 196 X10^3/uL (150.0-450.0); RED BLOOD COUNT 4.43 X10^6/uL (4.7-6.0); RED CELL DISTRIBUTION WIDTH 13.4 % (11.6-16.5); WHITE BLOOD COUNT 8.6 X10^3/uL (3.6-10.0)
[2017-07-23 05:49] LABS: LACTIC ACID 1.3 mmol/L (0.4-2.0)
[2017-07-23 05:56] LABS: ALANINE AMINOTRANSFERASE 70 Units/L (12-78); ALKALINE PHOSPHATASE 50 Units/L (46-116); ASPARTATE AMINO TRANSFERASE 25 Units/L (15-37); BLOOD UREA NITROGEN 13 mg/dL (7-18); CALCIUM 8.3 mg/dL (8.5-10.1); CARBON DIOXIDE 29.5 mmol/L (21-32); CHLORIDE 104 mmol/L (98-107); COR CA(FOR HYPOALB) 9.1 mg/dL (8.5-10.1); CREATININE 1.07 mg/dL (0.70-1.30); SODIUM 139 mmol/L (136-145); TOTAL PROTEIN 6.5 g/dL (6.4-8.2); eGFR BLACK RACES > 60 (>60); eGFR NON BLACK RACES > 60 (>60)
--- NOTE | 2017-07-23 06:45 | RAD ---
Examination: Chest, PA and lateral views History: Pneumonia Comparison 07/21/2017 Findings: Continued normal heart size with persistent areas of linear infiltrate/atelectasis in the l ower lobes. The upper lungs remain clear. No pneumothorax or pleural fluid. Impression: No change in appearance of the chest since 2 days earlier. Reported By:
[2017-07-23] MEDS ORDERED: NS 100 ML IV 100 ML IV ONE (07:38)
[2017-07-23] MEDS: VIBRAMYCIN 100 MG in NS 100 ML IV + SPIKE MINIBAG* 100 ML IV SCH ×2 (08:16→21:15)
[2017-07-23] MEDS: ROBITUSSIN DM PO SCH ×4 (08:16→21:15)
[2017-07-23] MEDS: SOLU-Medrol 40 MG VIAL IVP SCH ×3 (08:17→21:15)
[2017-07-23] MEDS: ZITHROMAX INJ 500 MG VIAL 500 MG in NS 250 ML IV 250 ML IV SCH (08:18)
[2017-07-23] MEDS: PROTONIX INJ 40 MG VIAL IVP SCH (08:18)
[2017-07-23] MEDS: NORVASC TAB 5 MG PO SCH (08:19)
[2017-07-23] MEDS: PULMICORT NEB TX 0.5 MG NEB SCH ×2 (09:05→21:13)
--- NOTE | 2017-07-23 09:30 | CT ---
HISTORY: Shortness of breath, pneumonia Study: CT chest with IV contrast Comparison: 07/20/2017 Technique: Multiple axial images of the chest were obtained from the thoracic inlet to the upper abdo men during the administration of IV contrast. Coronal and sagittal images are also reviewed. MIP shila nstructions were performed in axial plane. Dose reduction techniques utilized automatic exposure cont rol. Findings: Small central mediastinal and aortopulmonary window lymph nodes are present. No significant adenopath y is seen. There is no pericardial effusion observed. The thoracic aorta is normal in its contour w ithout evidence for aneurysmal dilatation. The central pulmonary arterial system does not demonstrat e central filling defects to suggest pulmonary emboli. Evaluation of the lung parenchyma reveals bilateral right middle lobe and bibasilar subsegmental atel ectasis or infiltrate. The opacities appear to have increased slightly in density compared to prior s tudies. No significant emphysema or bronchiectasis is seen. No pulmonary nodule or mass can be ident ified. The bony thorax is unremarkable in its appearance. The visualized portions of the upper abdo men are grossly unremarkable. IMPRESSION: No evidence of pulmonary embolus or thoracic aortic aneurysm. Interval increase in density in foci of atelectasis or infiltrate in the right middle and both lower lobe regions. No pleural or pericardial effusion is seen. Reported By:
[2017-07-23 11:44] LABS: ABG BASE EXCESS 1.5 mmol/L (-2.0-2.0); ABG HCO3 25.9 mmol/L (22-26)
[2017-07-23 11:45] LABS: ABG ALLEN TEST POS
[2017-07-23] MEDS: NS 1000 ML 1,000 ML IV SCH (12:27)
[2017-07-24] MEDS: DUONEB 0.5 MG/3 MG NEB SCH ×4 (00:39→12:43)
[2017-07-24 05:43] LABS: BASOPHILS % (AUTO) 0.2 % (0.2-1.0); HEMATOCRIT 43.3 % (42.0-54.0); LYMPHOCYTES # (AUTO) 0.6 X10^3/uL (1.3-2.9); LYMPHOCYTES % (AUTO) 3.7 % (21.0-51.0); MEAN CORPUSCULAR HEMOGLOBIN 33.2 pg (27.0-34.0); MEAN CORPUSCULAR HGB CONC 34.7 g/dL (33.0-35.0); MEAN CORPUSCULAR VOLUME 95.7 fL (80.0-100.0); MEAN PLATELET VOLUME 7.6 fL (7.4-11.0); MONOCYTES # (AUTO) 0.2 x10^3/uL (0.3-0.8); MONOCYTES % (AUTO) 1.4 % (0.0-13.0); NEUTROPHILS # (AUTO) 14.6 x10^3/uL (2.2-4.8); NEUTROPHILS % (AUTO) 94.7 % (42.0-75.0); PLATELET COUNT 226 X10^3/uL (150.0-450.0); RED BLOOD COUNT 4.52 X10^6/uL (4.7-6.0); RED CELL DISTRIBUTION WIDTH 12.9 % (11.6-16.5); WHITE BLOOD COUNT 15.5 X10^3/uL (3.6-10.0)
[2017-07-24] MEDS: SOLU-Medrol 40 MG VIAL IVP SCH (05:54)
[2017-07-24 06:00] LABS: ALANINE AMINOTRANSFERASE 61 Units/L (12-78); ALBUMIN 3.2 g/dL (3.4-5.0); ALKALINE PHOSPHATASE 54 Units/L (46-116); ASPARTATE AMINO TRANSFERASE 14 Units/L (15-37); BLOOD UREA NITROGEN 15 mg/dL (7-18); CALCIUM 8.6 mg/dL (8.5-10.1); CARBON DIOXIDE 24.1 mmol/L (21-32); CHLORIDE 103 mmol/L (98-107); COR CA(FOR HYPOALB) 9.2 mg/dL (8.5-10.1); COR NA(FOR HYPERGLY) 140 mmol/L (136-145); CREATININE 1.17 mg/dL (0.70-1.30); SODIUM 139 mmol/L (136-145); eGFR BLACK RACES > 60 (>60); eGFR NON BLACK RACES > 60 (>60)
[2017-07-24 06:05] LABS: BAND NEUTROPHILS % 4 % (0-10); PLATELET MORPHOLOGY COMMENT NORMAL (NORMAL)
--- NOTE | 2017-07-24 08:11 | RAD ---
HISTORY: Follow-up pneumonia Study: Chest PA and lateral Comparison: 07/23/2017 plain film and chest CT Findings: The heart is within normal limits in size. The lizandro are normal. The lungs are mildly hypo inflated bu t free of acute alveolar infiltrates. Bibasilar subsegmental atelectasis is present. No pleural effus ions are identified. The bony thorax is unremarkable. IMPRESSION: No definite infiltrates Bibasilar subsegmental atelectasis Reported By:
[2017-07-24] MEDS: ZITHROMAX INJ 500 MG VIAL 500 MG in NS 250 ML IV 250 ML IV SCH (08:25)
[2017-07-24] MEDS: NORVASC TAB 5 MG PO SCH (08:32)
[2017-07-24] MEDS: PROTONIX INJ 40 MG VIAL IVP SCH (08:33)
[2017-07-24] MEDS: ROBITUSSIN DM PO SCH ×2 (08:33→13:55)
[2017-07-24] MEDS: VIBRAMYCIN 100 MG in NS 100 ML IV + SPIKE MINIBAG* 100 ML IV SCH (08:33)
[2017-07-24] MEDS: PULMICORT NEB TX 0.5 MG NEB SCH (09:06)
[2017-07-24 12:57] VITALS: BP 126/70
[2017-07-24] MEDS: NS 1000 ML 1,000 ML IV SCH (13:55)
== END 2017-07-24 13:40 | disposition home or self-care (01) | DRG 195 ==
LOC: ER 07:22 → MED/SURG 09:39
PROVIDERS: ADMIT Internal Medicine; ATTEND Internal Medicine
DX: J15.7 Pneumonia due to Mycoplasma pneumoniae (principal); J18.1 Lobar pneumonia, unspecified organism; R06.02 Shortness of breath; I10 Essential (primary) hypertension; R09.02 Hypoxemia
CPT/HCPCS: 36415; 36600; 71045; 71046; 71260; 71275; 80053; 82550; 82553; 82803; 83605; 84484; 85025; 85378; 86738; 87040; 87070; 87205; 93005; 93010; 94640; 94669; 96365; 96374; 99282; 99284; A4222; C9113; J0456; J2920; J3490; J7608; J7620; J7626